=== PATIENT | male | born 1960 | race Two or more races ===

== ENCOUNTER 2022-07-20 08:22 | Outpatient (CLI) | payer OTHER | END 2022-07-20 08:23 | disposition home or self-care (01) | LOC: LAB 08:22 | DX: I10 Essential (primary) hypertension (principal); E78.2 Mixed hyperlipidemia; E11.9 Type 2 diabetes mellitus without complications ==

== ENCOUNTER 2022-07-20 08:26 | Outpatient (CLI) | payer OTHER | END 2022-07-20 09:00 | disposition home or self-care (01) | LOC: SONOGRAMA 08:26 | DX: R10.10 Upper abdominal pain, unspecified (principal) ==

== ENCOUNTER 2023-10-13 07:58 | Outpatient (CLI) | payer OTHER ==
[2023-10-13 09:17] LABS: URINE APPEARANCE Clear; URINE BILIRRUBIN Negative (NEGATIVE); URINE BLOOD Moderate; URINE COLOR Dark Yellow; URINE LEUKOCYTE Moderate; URINE NITRATE Negative; URINE PROTEIN 30 (NEGATIVE); URINE UROBILINOGEN 0.2 E.U./dl
[2023-10-13 09:21] LABS: URINE BACTERIA 4782.9 uL (0.0-1933); URINE EPITHELIAL CELLS 12.9 uL (0.0-38.8); URINE RBC 38.5 uL (0.0-20.8); URINE WBC 187.9 uL (0.0-23.2)
[2023-10-13 09:26] LABS: URINE GLUCOSE 100 MG/DL (NEGATIVE)
[2023-10-13 09:49] LABS: ALBUMIN 3.9 gm/dL (3.4-5.0); BILIRUBIN TOTAL 0.62 mg/dL (0.3-1.2); CALCIUM 9.3 mg/dL (8.5-10.1); CREATININE SERUM 0.83 mg/dL (0.70-1.30); GFR 94.19; GLOBULINA 3.2 G/DL (2.4-3.5); POTASSIUM 4.08 mEq/L (3.5-5.1); TOTAL PROTEIN 7.1 gm/dL (6.4-8.2)
[2023-10-13 09:50] LABS: PROSTATIC SPECIFIC ANTIGEN 7.08 NG/ML (0.010-4.00)
== END 2023-10-13 08:01 | disposition home or self-care (01) ==
LOC: LAB 07:58
PROVIDERS: ATTEND Urology
DX: I10 Essential (primary) hypertension (principal); R31.9 Hematuria, unspecified; R97.20 Elevated prostate specific antigen [PSA]

== ENCOUNTER 2023-11-21 07:20 | Outpatient (CLI) | payer OTHER ==
[2023-11-21 08:26] LABS: PH,URINE 5.5 (5.0-8.0); URINE APPEARANCE Cloudy; URINE BILIRRUBIN Negative (NEGATIVE); URINE BLOOD Moderate; URINE COLOR Yellow; URINE GLUCOSE Negative (NEGATIVE); URINE LEUKOCYTE Moderate; URINE NITRATE Positive; URINE UROBILINOGEN 0.2 E.U./dl
[2023-11-21 08:29] LABS: HEMATOCRIT 41.5 % (39.0-48.0); MEAN CELL VOLUME 86.3 fL (80.0-100.00); MEAN CORPUSCULAR HEMOGLOBIN 29.2 pg (27.00-32.0); MEAN CORPUSCULAR HGB CONC 33.8 g/dl (32.0-36.0); PLATELET COUNT 216 K/uL (150-450); RED BLOOD COUNT 4.81 M/uL (4.00-6.00); RED CELL DISTRIBUTION WIDTH 13.6 % (11.5-14.5)
[2023-11-21 08:30] LABS: URINE BACTERIA 134.7 uL (0.0-1933); URINE RBC 143.4 uL (0.0-20.8); URINE WBC 558.7 uL (0.0-23.2)
[2023-11-21 08:35] LABS: INR 1.13; PARTIAL THROMBOPLASTIN TIME 30.4 SECONDS (22.0-34.0)
[2023-11-21 08:56] LABS: PROTHROMBIN TIME 11.8 SECONDS (9.0-11.5)
[2023-11-21 09:18] LABS: ALBUMIN 3.8 gm/dL (3.4-5.0); CREATININE SERUM 0.9 mg/dL (0.70-1.30); GFR 85.79; GLOBULINA 3.6 G/DL (2.4-3.5); POTASSIUM 3.76 mEq/L (3.5-5.1); TOTAL PROTEIN 7.4 gm/dL (6.4-8.2)
[2023-11-21 09:23] LABS: URINE PROTEIN 100 (NEGATIVE)
== END 2023-11-21 07:21 | disposition home or self-care (01) ==
LOC: LAB 07:20
PROVIDERS: ATTEND Urology
DX: I10 Essential (primary) hypertension (principal); R31.9 Hematuria, unspecified; N39.0 Urinary tract infection, site not specified; N40.1 Benign prostatic hyperplasia with lower urinary tract symptoms

== ENCOUNTER 2023-11-21 07:54 | Outpatient (CLI) | payer OTHER | END 2023-11-21 07:59 | disposition home or self-care (01) | LOC: RAD 07:54 | PROVIDERS: ATTEND Urology | DX: I10 Essential (primary) hypertension (principal); R31.9 Hematuria, unspecified; N39.0 Urinary tract infection, site not specified; N40.1 Benign prostatic hyperplasia with lower urinary tract symptoms ==

== ENCOUNTER 2024-06-14 07:27 | Outpatient (CLI) | payer OTHER ==
[2024-06-14 09:23] LABS: PH,URINE 5.5 (5.0-8.0); URINE APPEARANCE Cloudy; URINE BILIRRUBIN Negative (NEGATIVE); URINE BLOOD Small; URINE COLOR Yellow; URINE GLUCOSE Negative (NEGATIVE); URINE KETONE Negative (NEGATIVE); URINE LEUKOCYTE Large; URINE NITRATE Positive; URINE PROTEIN 30 (NEGATIVE); URINE UROBILINOGEN 0.2 E.U./dl
[2024-06-14 09:28] LABS: URINE EPITHELIAL CELLS 8.5 uL (0.0-38.8); URINE RBC 19.6 uL (0.0-20.8); URINE WBC 2887.8 uL (0.0-23.2)
[2024-06-14 09:32] LABS: HEMOGLOBIN 13.5 g/dL (13-16.00); MEAN CORPUSCULAR HEMOGLOBIN 27.3 pg (27.00-32.0); MEAN CORPUSCULAR HGB CONC 32.9 g/dl (32.0-36.0); PLATELET COUNT 275 K/uL (150-450); RED BLOOD COUNT 4.94 M/uL (4.00-6.00)
[2024-06-14 09:37] LABS: URINE BACTERIA > 9821.5 uL (0.0-1933); URINE CAST 0.91 uL (0.0-1.40)
[2024-06-14 09:51] LABS: RED CELL DISTRIBUTION WIDTH 16.6 % (11.5-14.5)
[2024-06-14 10:45] LABS: BILIRUBIN TOTAL 0.56 mg/dL (0.3-1.2); CALCIUM 8.9 mg/dL (8.5-10.1); CHOL HDL RATIO 5.6 (0-5.0); CREATININE SERUM 0.88 mg/dL (0.70-1.30); GFR 88.04; GLOBULINA 3.7 G/DL (2.4-3.5); POTASSIUM 4.21 mEq/L (3.5-5.1); TOTAL PROTEIN 7.7 gm/dL (6.4-8.2); TSH 3.41 uIU/mL (0.358-3.74)
== END 2024-06-14 07:31 | disposition home or self-care (01) ==
LOC: LAB 07:27
DX: G47.33 Obstructive sleep apnea (adult) (pediatric) (principal); E70.20 Disorder of tyrosine metabolism, unspecified; Z11.9 Encounter for screening for infectious and parasitic diseases, unspecified

== ENCOUNTER → 2024-07-15 07:24 | Outpatient (CLI) | payer OTHER ==
[2024-07-15 07:52] LABS: HEMATOCRIT 39.9 % (39.0-48.0); HEMOGLOBIN 13.4 g/dL (13-16.00); MEAN CORPUSCULAR HEMOGLOBIN 27.9 pg (27.00-32.0); MEAN CORPUSCULAR HGB CONC 33.6 g/dl (32.0-36.0); PLATELET COUNT 226 K/uL (150-450); RED BLOOD COUNT 4.81 M/uL (4.00-6.00); RED CELL DISTRIBUTION WIDTH 15.7 % (11.5-14.5)
[2024-07-15 07:54] LABS: PH,URINE 6.5 (5.0-8.0); URINE APPEARANCE Cloudy; URINE BILIRRUBIN Negative (NEGATIVE); URINE BLOOD NHT; URINE COLOR Yellow; URINE GLUCOSE Negative (NEGATIVE); URINE KETONE Negative (NEGATIVE); URINE LEUKOCYTE Large; URINE NITRATE Positive; URINE PROTEIN Trace (NEGATIVE)
[2024-07-15 07:57] LABS: URINE BACTERIA 1235.8 uL (0.0-1933); URINE EPITHELIAL CELLS 2.3 uL (0.0-38.8); URINE RBC 11.7 uL (0.0-20.8); URINE WBC 1564.6 uL (0.0-23.2)
[2024-07-15 08:00] LABS: ERYTHROCYTE SEDIMENTATION RATE 17 mm/hr
[2024-07-15 09:09] LABS: ALKALINE PHOSPHATASE 81 U/L (50-136); ALT/SGPT 22 U/L (12-78); ANION GAP 9 (10.0-20.0); AST/SGOT 14 U/L (15-37); BILIRUBIN TOTAL 0.62 mg/dL (0.3-1.2); BLOOD UREA NITROGEN 10 mg/dL (7-18); BUN CREA RATIO 12 (7.0-25.0); CALCIUM 9.2 mg/dL (8.5-10.1); CARBON DIOXIDE 29 mEq/L (21-32); CHLORIDE 104 mmol/L (98-107); CHOL HDL RATIO 5.4 (0-5.0); CHOLESTEROL 183 mg/dL (0-200); CREATININE SERUM 0.85 mg/dL (0.70-1.30); GFR 91.63; GLOBULINA 3.5 G/DL (2.4-3.5); GLUCOSE FASTING 171 mg/dL (65-100); HDL 34 mg/dl (40-60); LDL 102 mg/dl (0-130); OSMOLALITY SERUM 279 MOSM/KG (275-295); POTASSIUM 3.84 mEq/L (3.5-5.1); SODIUM 138 mmol/L (136-145); T4 FREE 0.88 NG/ML (0.76-1.46); TOTAL PROTEIN 7.5 gm/dL (6.4-8.2); VLDL 47 (0-39)
[2024-07-15 09:10] LABS: C-REACTIVE PROTEIN < 0.29 MG/DL (0.00-0.29); TRIGLYCERIDES 236 mg/dL (0-150)
== END | disposition home or self-care (01) ==
LOC: LAB 07:24
PROVIDERS: ATTEND Internal Medicine
DX: E03.9 Hypothyroidism, unspecified (principal); I10 Essential (primary) hypertension; R73.09 Other abnormal glucose; E21.0 Primary hyperparathyroidism; D64.9 Anemia, unspecified; M19.90 Unspecified osteoarthritis, unspecified site; Z12.5 Encounter for screening for malignant neoplasm of prostate; M06.9 Rheumatoid arthritis, unspecified; E78.5 Hyperlipidemia, unspecified; N18.2 Chronic kidney disease, stage 2 (mild); N40.0 Benign prostatic hyperplasia without lower urinary tract symptoms

== ENCOUNTER 2024-11-16 08:41 | Emergency (ER) | payer OTHER ==
[~2024-11-16] VITALS: Ht 175.3 cm; Wt 108.9 kg
[2024-11-16] MEDS ORDERED: WELLBUTRIN XL300 MG PO (08:59)
[2024-11-16] MEDS ORDERED: ALDACTONE25 MG PO (09:00)
[2024-11-16] MEDS ORDERED: CANDESARTAN CIL32 MG PO (09:00)
[2024-11-16] MEDS ORDERED: PROTONIX40 MG PO ×2 (09:00→11:12)
[2024-11-16] MEDS ORDERED: CARVEDILOL6.25 M1 PO (09:00)
[2024-11-16] MEDS ORDERED: NIFEDIPINE20 MG PO (09:01)
[2024-11-16] MEDS ORDERED: GLIPIZIDE XL5 MG (09:01)
[2024-11-16] MEDS ORDERED: GLUMETZA500 MG PO (09:01)
[2024-11-16] MEDS ORDERED: GLUCOTROL XL5 MG PO (09:01)
[2024-11-16] MEDS ORDERED: FAMOtidine 10 MG/ML (4ML VIAL) IV PUSH ONE (09:30)
[2024-11-16] MEDS ORDERED: BUTALB/ACETAMINOPHEN/CAFFEINE 1 TAB TABLET PO ONE (09:30)
[2024-11-16 10:03] LABS: HEMATOCRIT 38.6 % (39.0-48.0); MEAN CELL VOLUME 83.3 fL (80.0-100.00); MEAN CORPUSCULAR HGB CONC 33.6 g/dl (32.0-36.0); PLATELET COUNT 227 K/uL (150-450); RED BLOOD COUNT 4.63 M/uL (4.00-6.00); RED CELL DISTRIBUTION WIDTH 14.2 % (11.5-14.5)
[2024-11-16 10:31] LABS: PH,URINE 5.5 (5.0-8.0); URINE APPEARANCE Turbid; URINE BILIRRUBIN Small (NEGATIVE); URINE BLOOD Large; URINE COLOR Dark Yellow; URINE GLUCOSE Negative (NEGATIVE); URINE KETONE 15 (NEGATIVE); URINE LEUKOCYTE Moderate; URINE NITRATE Positive
[2024-11-16 10:35] LABS: URINE BACTERIA 2849.3 uL (0.0-1933); URINE CAST 2.41 uL (0.0-1.40); URINE EPITHELIAL CELLS 18.6 uL (0.0-38.8)
[2024-11-16 10:56] LABS: URINE PROTEIN 100 (NEGATIVE)
[2024-11-16 10:57] LABS: URINE MUCUS SCANT
[2024-11-16] MEDS ORDERED: BACTRIM DS TAB1 EACH PO (11:12)
== END 2024-11-16 11:31 | disposition home or self-care (01) ==
LOC: ER 08:42
PROVIDERS: General Practice
DX: R53.81 Other malaise (principal); R51.9 Headache, unspecified; N39.0 Urinary tract infection, site not specified; Z20.822 Contact with and (suspected) exposure to COVID-19; I10 Essential (primary) hypertension; E11.9 Type 2 diabetes mellitus without complications; Z79.84 Long term (current) use of oral hypoglycemic drugs